=== PATIENT | female | born 1975 | race Caucasian/White ===

== ENCOUNTER 2016-05-11 17:48 | Emergency (ER) | payer OTHER ==
[2016-05-11] MEDS ORDERED: traMADol 50 MG TAB PO ONE (18:07)
--- NOTE | 2016-05-11 19:01 | DX ---
Left knee series 5 views. History: Pain following trauma. Fell down stairs. Findings: Osseous structures are intact without fracture. The knee joint space is normal. No osteophy rajat are seen. No intra-articular calcifications are evident. There is no effusion. There is moderate prepatellar soft tissue swelling. On the merchant view obtained there is no subluxation of the patell a. Impression: 1. No acute osseous abnormality seen left knee. 2. Prepatellar soft tissue swelling/contusion.
--- NOTE | 2016-05-11 19:17 | EDPHY ---
H & P Stated Complaint: l knee injury,missed last step HPI/ROS: Chief complaint: Left knee injury History of present illness: 40-year-old female presents to the emergency department for left knee injury. Patient was walking down the steps when she missed the last step and struck her left knee against the wall. Since then she has had significant pain in the knee. There is also significant swelling to the anterior aspect of the knee. She is having difficulty moving it. She cannot ambulate well. She denies open wounds. She denies paresthesias or abnormal coolness in the leg. She denies trauma to other parts of the body. - Personal History LMP (Females 10-55): Now Current Tetanus Diphtheria and Acellular Pertussis (TDAP): Yes - Medical/Surgical History Other PMH: r knee fx, hand surgery,htn - Social History Smoking Status: Never smoked - Physical Exam Exam: General: Alert, nontoxic Skin: No open wounds to the left leg Musculoskeletal: Contusion and edema anterior to the left knee. She has been difficulty flexing extending. It is diffusely tender. The rest the leg is nontender. She can move the ankle and digits of the left foot without difficulty. Vascular: DP and PT pulses 2+. Capillary refill brisk in the left foot. Neurologic: Sensation intact throughout the left leg. Constitutional: Initial Vital Signs Temperature (C) 36.7 C 05/11/16 18:01 Heart Rate 72 05/11/16 18:01 Respiratory Rate 16 05/11/16 18:01 Blood Pressure 157/82 H 05/11/16 18:01 O2 Sat (%) 95 05/11/16 18:01 O2 Delivery Mode Room Air Allergies/Adverse Reactions: codeine Allergy (Verified 05/11/16 18:01) Home Medications: Medication Instructions Recorded Procardia Xl 05/11/16 traMADol [Ultram 50 mg (*)] 50 mg PO Q4 #15 tab 05/11/16 Medical Decision Making - Diagnostics Imaging: X-ray series of the left knee is negative for fracture, significant edema is noted Procedures: Procedure: Splint placement. A knee immobilizing splint was applied. After application of the splint I returned and re-examined the patient. The splint was adequately immobilizing the joint and distal to the splint the patient's circulation and sensation was intact. Patient was outfitted with crutches. ED Course/Re-evaluation: Patient seen under the supervision of my secondary supervising physician Dr. Florentino Lugo. Patient presents to the emergency department for left knee injury. The leg is neurovascularly intact. There is a significant contusion and edema to the anterior knee. X-rays negative for fracture. Patient is placed in a knee immobilizer. She is outfitted with crutches. She will be discharged home. Home care is discussed. Rest, elevation and icing is discussed. She is also asked to use ibuprofen. She has used tramadol in the past for pain control and states it works well, this is also prescribed. She is referred to Orthopedics for recheck. Return precautions are given. - Data Points Medications Given: Discontinued Medications Tramadol HCl (Ultram) 50 mg PO EDNOW ONE Stop: 05/11/16 18:08 Last Admin: 05/11/16 18:20 Dose: 50 mg Departure - Departure Disposition: Home, Routine, Self-Care Clinical Impression: Knee contusion Qualifiers: Encounter type: initial encounter Laterality: left Qualifier Code: (S80.02XA) Contusion of left knee, initial encounter Condition: Good Instructions: Contusion in Adults (ED) Additional Instructions: Follow-up with Orthopedics next week for recheck Ice the injury, 20 minutes on, at least 3 times daily for the next 3 days Elevate the injury as much as possible In regards to pain control see the following: Use ibuprofen 600 mg 3 times a day for the next 2-3 days for pain You have also been prescribed tramadol. It is sedating. If symptoms worsen or new symptoms develop return to the emergency department for recheck Referrals: Tracie Larkin DO [Primary Care Provider] - As per Instructions Gavin Blue MD [Medical Doctor] - As per Instructions Prescriptions: traMADol [Ultram 50 mg (*)] 50 mg PO Q4 #15 tab
[2016-05-11 19:44] VITALS: BP 137/92; PULSE 82; RESP 20; TEMP 98.4; O2SAT 92
== END 2016-05-11 19:39 | disposition home or self-care (01) ==
DX: S80.02XA Contusion of left knee, initial encounter (principal); I10 Essential (primary) hypertension; W22.01XA Walked into wall, initial encounter
CPT/HCPCS: L1830